=== PATIENT | male | born 1950 | race Caucasian/White ===

== ENCOUNTER 2018-02-20 12:08 | Outpatient (CLI) | payer MEDICARE, BC | END 2018-02-20 12:09 | disposition home or self-care (01) | DRG 556 | LOC: CONVCARE 12:08 | PROVIDERS: ATTEND Orthopaedic Surgery | DX: M25.512 Pain in left shoulder (principal) | CPT/HCPCS: 72040; 73030 ==

== ENCOUNTER 2018-09-06 08:00 | Day surgery (SDC) | payer MEDICARE, BC ==
[2018-09-06] MEDS ORDERED: PROPOFOL 500 MG/50 ML EMU IV ONE (08:02)
[2018-09-06] MEDS ORDERED: LIDOCAINE HCL 1% MPF 30 SOL ONE (08:02)
[2018-09-06 08:21] VITALS: RESP 16
[2018-09-06 09:54] VITALS: BP 146/91; PULSE 68; TEMP 96.9; O2SAT 98
== END 2018-09-06 10:04 | disposition home or self-care (01) | DRG 951 ==
LOC: SURG 08:00
PROVIDERS: ATTEND Surgery
DX: Z12.11 Encounter for screening for malignant neoplasm of colon (principal); Q39.9 Congenital malformation of esophagus, unspecified; K57.32 Diverticulitis of large intestine without perforation or abscess without bleeding; Z80.0 Family history of malignant neoplasm of digestive organs; K29.70 Gastritis, unspecified, without bleeding; D12.5 Benign neoplasm of sigmoid colon
CPT/HCPCS: J2001; J2704